=== PATIENT | female | born 1935 | race Caucasian/White ===

== ENCOUNTER 2018-10-19 03:50 | Inpatient (IN) | payer MEDICARE ==
[~2018-10-19] VITALS: Ht 172.7 cm; Wt 59.0 kg
[2018-10-19 03:50] VITALS: BP 142/82
--- NOTE | 2018-10-19 03:55 | NUR ---
BIBA TO ER BED 9
--- NOTE | 2018-10-19 04:00 | NUR ---
BIBA FOR MULTIPLE N/V AND UPPER ABD PAIN X 1 DAY. EMS GAVE ZOFRAN 4MG ODT WITH IMPROVEMENT. ABD IS SOFT NON TENDER. BOWEL SOUNDS ACTIVE X 4 QUADRANTS. NO PAIN UPON PALPATION. PT PLACED INTO BED, PENDING MD DILLARD. PMH: APPENDECTOMY, CHOLECYSTECTOMY, IBS, HYPOTHYROIDISM, HLD Addendum: 10/19/18 at 0629 by MEDRI BIBA FOR MULTIPLE N/V AND UPPER ABD PAIN X 1 DAY. EMS GAVE ZOFRAN 4MG ODT WITH IMPROVEMENT. ABD IS SOFT NON TENDER IN UPPER QUADRANTS, LOWER QUADRANTS TENDER TO PALPATION. NO PAIN UPON PALPATION. BOWEL SOUNDS ACTIVE X 4 QUADRANTS. PT PLACED INTO BED, PENDING MD DILLARD. PMH: APPENDECTOMY, CHOLECYSTECTOMY, IBS, HYPOTHYROIDISM, HLD
[2018-10-19] MEDS ORDERED: ONDANSETRON 4 MG/2 ML VIAL IVP ONE (04:50)
[2018-10-19] MEDS ORDERED: NACL 0.9% 1,000 ML IV ONE (04:50)
--- NOTE | 2018-10-19 05:07 | NUR ---
PT TO CT VIA WC
--- NOTE | 2018-10-19 05:20 | NUR ---
RETURN FROM CT
[2018-10-19 06:05] LABS: BASOPHILS % (AUTO) 0.3 % (0.0-2.0); LYMPHOCYTES # (AUTO) 0.6 K/uL (2.5-16.5); MONOCYTES # (AUTO) 0.3 K/uL (0.8-1.0); RED BLOOD CELL COUNT(AUTO) 4.94 MIL/uL (4.20-5.40)
--- NOTE | 2018-10-19 06:11 | NUR ---
CT CRITICAL TAKEN AND DR CHAVEZ NOTIFIED IMMEDIATELY. CT RESULTS SHOW CONSISTENT WITH SMALL BOWEL OBSTRUCTION. DR CHAVEZ INSTUCTED TO BEGIN ADMITTING PT.
[2018-10-19 06:13] LABS: BILIRUBIN,URINE NEGATIVE (NEGATIVE); BLOOD, URINE TRACE-I (NEGATIVE); COLOR,URINE YELLOW (YELLOW); NITRITE, URINE POSITIVE (NEGATIVE); UGLUCOSE NEGATIVE (NEGATIVE)
[2018-10-19 06:14] LABS: APPEARANCE,URINE HAZY (CLEAR); LEUKOCYTE ESTERASE ,URINE 2+ (NEGATIVE)
[2018-10-19 06:17] LABS: EOSINOPHILS # (AUTO) 0.1 K/uL (0-0.4); EOSINOPHILS % (AUTO) 0.5 % (0.0-4.0); HEMATOCRIT 45.7 % (36-48); HEMOGLOBIN 15.5 g/dL (12.0-16.0); LYMPHOCYTES % (AUTO) 6.2 % (20.5-51.1); MEAN CORPUSCULAR HEMOGLOBIN 31 pg (27-31); MEAN CORPUSCULAR HGB CONC 34 g/dL (33-37); MEAN CORPUSCULAR VOLUME 92.5 fL (80-94); MONOCYTES % (AUTO) 2.5 % (1.7-9.3); NEUTROPHILS # (AUTO) 9.4 K/uL (1.8-7.7); NEUTROPHILS % (AUTO) 90.5 % (42.2-75.2); PLATELET COUNT (AUTO) 186 K/uL (140-450); WHITE BLOOD COUNT (AUTO) 10.4 K/uL (4.8-10.8)
[2018-10-19 06:17] LABS: RBC,URINE 0-5 (RARE) /HPF (0-5)
[2018-10-19 06:18] LABS: WBC,URINE 80-100 /HPF (0-5)
[2018-10-19] MEDS ORDERED: ONDANSETRON 4 MG/2 ML VIAL IM/IVP PRN (06:40)
[2018-10-19] MEDS ORDERED: KETOROLAC 30 MG/ML VIAL IVP PRN (06:40)
[2018-10-19] MEDS ORDERED: HYDROcodone/APAP 7.5/325 MG 1 TAB PO PRN (06:40)
[2018-10-19] MEDS ORDERED: DOCUSATE SODIUM 100 MG GELCAP PO PRN (06:40)
[2018-10-19] MEDS ORDERED: ACETAMINOPHEN 325 MG TAB PO PRN (06:40)
[2018-10-19 07:01] LABS: ANION GAP 6.6 (8-16); CARBON DIOXIDE 36.3 mmol/L (21-32); CHLORIDE 99 mmol/L (98-107); CREATININE 1.1 mg/dL (0.6-1.3); GLUCOSE 134 mg/dL (74-106); POTASSIUM 3.9 mmol/L (3.5-5.1); SODIUM SERUM 138 mmol/L (136-145)
[2018-10-19 07:02] LABS: ALBUMIN 3.7 g/dL (3.4-5.0); ASPARTATE AMINOTRANSFERASE 15 U/L (15-37); TOTAL BILIRUBIN 0.5 mg/dL (0.0-1.0)
[2018-10-19 07:19] LABS: UREA NITROGEN, BLOOD 16 mg/dL (7-18)
--- NOTE | 2018-10-19 07:25 | NUR ---
Patient will be admitted to care of [facility]. Admited to TELE. Will go to room 124-B. Belongings list completed. Report to EDD MORENO.
--- NOTE | 2018-10-19 08:00 | NUR ---
RECEIVED REPORT FORM PM NURSE AT BEDSIDE. PT ADMITTED FROM ER. PT CC NAUSEA AND VOMITING AND ADMITTED WITH DX OF SMALL BOWEL OBSTRUCTION. PT COMPLAINS OF MILD PAIN IN HER STOMACH, STATES IS TOLERABLE AT THIS TIME. PT DAUGHTER AT BEDSIDE. VS RECORDED, NORMAL AT THIS TIME. T 98.5, HR 64, BP 136/32, RR 18, O2 SAT 95%. PT HAS IV ACCESS AT LF AC 20 G, NS INFUSING WELL. NO SIGN OF DISTRESS NOTED. MRSA NARES SWAB OBTAINED, SENT TO LAB. ORDER NG TUBE INSERTION IN PT. INFORMED PT THAT, THERE IS ORDER FOR NG TUBE INSERTION. PT AND DAUGHTER AWARE. OKAY WITH PROCEDURE. EDUCATED PT ON NG TUBE INSERTION, STATES HAD NG TUBE BEFORE. IS FAMILIAR WITH PROCEDURE. PREPARING TO INSERT NG TUBE. WILL CONTINUE TO MONITOR PT.
[2018-10-19 09:59] LABS: CHOL/HDL RATIO 2.4 (1-4.5); MAGNESIUM 2.1 mg/dL (1.8-2.4); PHOSPHORUS 4.9 mg/dL (2.5-4.9); THYROID STIMULATING HORMONE 1.7 uIU/mL (0.34-3.74)
--- NOTE | 2018-10-19 10:00 | NUR ---
INSERTED NG TUBE IN PT WITH HELP OF RN WOO, X-RAY ORDERED FOR CONFIRMATION, NG TUBE NOT IN PLACE. WILL RE-INSERT NG TUBE , NOTIFIED. WILL CONTINUE TO MONITOR PT.
[2018-10-19 10:12] LABS: PROTHROMBIN TIME 9.4 secs (10.8-13.4)
[2018-10-19] MEDS ORDERED: MORPHINE SULFATE 2 MG/ML SYR IVP SCH (10:45)
[2018-10-19 12:00] VITALS: BP 129/41
[2018-10-19] MEDS: DEXT 5% /NACL 0.9% 1,000 ML IV SCH ×2 (12:00→17:47)
--- NOTE | 2018-10-19 12:00 | NUR ---
NG TUBE INSERTED BY DR FLORES, SUCCESSFUL. X-RAY CONFIRMS THE PLACEMENT. PT TOLERATED WELL. NG TUBE CONNECTED TO LOW INTERMITTENT SUCTION. ADMINISTERED OTHER MEDS ORDERED. ADMINISTERED MORPHINE FOR PAIN MANAGEMENT. PT LYING COMFORTABLY IN BED. NO SIGN OF DISTRESS NOTED. WILL CONTINUE TO MONITOR PT.
--- NOTE | 2018-10-19 15:00 | NUR ---
CHECKED ON PT. LYING ON HER BED. PT SLEEPING COMFORTABLY. NO SIGN OF DISTRESS NOTED. CALL LIGHT WITHIN PT REACH. WILL CONTINUE TO MONITOR PT.
[2018-10-19 16:00] VITALS: BP 126/42
--- NOTE | 2018-10-19 17:00 | NUR ---
RECEIVED CALL FROM RAD. WANTED TO ADMINISTERED CONTRAST FOR KUB IN PT. ADMINISTERED KUB IN PT. TOLERATED WELL. NO SIGN OF DISTRESS NOTED. WILL CONTINUE TO MONITOR PT. FLOOR WINDER WANTS NOT TO OPEN THE LOW INTERMITTENT SUCTION IT MIGHT PULL THE CONTRAST FORM THE PT.
--- NOTE | 2018-10-19 19:15 | NUR ---
ENDORSED PT TO PM NURSE AT BEDSIDE. PT LYING ON HER BED COMFORTABLY. PT HAS SMALL AMOUNT OF BLOOD IN NG TUBE. MD AWARE. PER MD , MONITOR THE AMOUNT OF BLOOD IN THE NG TUBE, TO INFORM HER IF BLOOD IN CONTINUOS. NO SIGN OF DISTRESS . PT DENIES ANY PAIN OR DISCOMFORT.
--- NOTE | 2018-10-19 19:16 | NUR ---
RECEIVED PT ON BED, AAOX4, DENIES ANY PAIN, VITAL SIGNS STABLE, NO SOB NOTED, WITH NGT TO LEFT NARES, SUCTION OFF AT THIS TIME DUE TO ON-GOING SMALL BOWEL FOLLOW THROUGH, MAINTAINED ON NPO, IVF INFUSING WELL, PLAN OF CARE DISCUSSED, SAFETY MEASURES IN PLACE, CALL LIGHT WITHIN REACH.
[2018-10-19 20:00] VITALS: BP 117/42
[2018-10-19] MEDS: FAMOTIDINE 20 MG TAB PO SCH (21:00)
--- NOTE | 2018-10-19 21:29 | NUR ---
DUE PO MEDICATION NOT GIVEN DUE TO PT UNDERGOING SBFT AT THIS TIME, PT WITH SMALL AMOUNT OF DIARRHEA X5 SINCE THE START OF THE SHIFT, DR MEDRANO IS AWARE, TO CONTINUE MONITOR AND IVF IS INFUSING WELL.
--- NOTE | 2018-10-19 21:50 | NUR ---
NGT DISCONTINUED PER ORDER BY DR SHEPHERD, TOLERATED WELL, NO BLEEDING NOTED, INSTRUCTED TO START FULL LIQUID DIET TOMORROW, VERBALIZED UNDERSTANDING.
[2018-10-20] VITALS: BP 122/38
--- NOTE | 2018-10-20 | NUR ---
PT SLEEPING, EASILY AROUSABLE, VITAL SIGNS STABLE, DENIES PAIN, NO N/V NOTED, IVF INFUSING WELL, CONTINUE TO MONITOR CLOSELY.
[2018-10-20] MEDS: DEXT 5% /NACL 0.9% 1,000 ML IV SCH ×2 (02:40→16:04)
[2018-10-20 04:00] VITALS: BP 107/45
--- NOTE | 2018-10-20 04:00 | NUR ---
PT SLEEPING, EASILY AROUSABLE, VITAL SIGNS STABLE, DENIES PAIN OR NAUSEA, IVF INFUSING WELL, MONITORED CLOSELY.
[2018-10-20] MEDS: LEVOTHYROXINE 0.1 MG TAB PO SCH (06:11)
--- NOTE | 2018-10-20 06:15 | NUR ---
DUE PO MEDICATION TAKEN, TOLERATED WELL, VOIDED FREELY PER BEDSIDE COMMODE, NO DIARRHEA AT THIS TIME, IVF INFUSING WELL, TO START ON FULL LIQUID FOR BREAKFAST TODAY, PT AWARE, MONITORED CLOSELY.
[2018-10-20 06:25] LABS: T4 (THYROXINE) 11.9 ug/dL (4.5-12.0)
--- NOTE | 2018-10-20 07:15 | NUR ---
PT AWAKE, NO DISTRESS NOTED, REPORT GIVEN TO EDD BERKOWITZ FOR CONTINUITY OF CARE.
[2018-10-20 07:21] LABS: BASOPHILS % (AUTO) 0.5 % (0.0-2.0); EOSINOPHILS # (AUTO) 0.1 K/uL (0-0.4); EOSINOPHILS % (AUTO) 1.8 % (0.0-4.0); HEMATOCRIT 37.6 % (36-48); HEMOGLOBIN 12.6 g/dL (12.0-16.0); LYMPHOCYTES # (AUTO) 1.1 K/uL (2.5-16.5); MEAN CORPUSCULAR HEMOGLOBIN 31 pg (27-31); MEAN CORPUSCULAR HGB CONC 34 g/dL (33-37); MEAN CORPUSCULAR VOLUME 92.7 fL (80-94); MONOCYTES # (AUTO) 0.4 K/uL (0.8-1.0); MONOCYTES % (AUTO) 6.8 % (1.7-9.3); NEUTROPHILS # (AUTO) 4.3 K/uL (1.8-7.7); NEUTROPHILS % (AUTO) 72.9 % (42.2-75.2); PLATELET COUNT (AUTO) 146 K/uL (140-450); RED BLOOD CELL COUNT(AUTO) 4.06 MIL/uL (4.20-5.40); RED CELL DISTRIBUTION WIDTH 12.9 % (11.6-13.7); WHITE BLOOD COUNT (AUTO) 5.9 K/uL (4.8-10.8)
[2018-10-20 07:31] LABS: ANION GAP 10.1 (8-16); CARBON DIOXIDE 28.6 mmol/L (21-32); CHLORIDE 105 mmol/L (98-107); CREATININE 0.9 mg/dL (0.6-1.3); GLUCOSE 103 mg/dL (74-106); POTASSIUM 3.7 mmol/L (3.5-5.1); SODIUM SERUM 140 mmol/L (136-145); UREA NITROGEN, BLOOD 8 mg/dL (7-18)
[2018-10-20 07:37] LABS: MAGNESIUM 1.8 mg/dL (1.8-2.4); PHOSPHORUS 4.1 mg/dL (2.5-4.9)
[2018-10-20 08:00] VITALS: BP 138/41
--- NOTE | 2018-10-20 08:08 | NUR ---
REPORT RECEIVED FROM NURSE BERKOWITZ WHO RECEIVED REPORT FROM JANIE GOEMZ AWAKE ALERT, RESP EVEN UNLABORED, SKIN WARM DRY COLOR JANIE BAÑUELOS DENIES PAIN OR DISCOMFORT, DENIES N/V, PLAN OF CARE REVIEWED, NO IMMEDIATE NEEDS AT THIS TIME, ALL SAFETY MEASURES IN PLACE, WILL CONTINUE TO MONITOR. Addendum: 10/20/18 at 0810 by Carmen Azar RN SBD SOFT, NON DISTEND. Addendum: 10/20/18 at 0810 by Carmen Azar RN ABDOMEN SOFT, NON DISTENDED.
[2018-10-20] MEDS ORDERED: DOCU-299 PO (08:12)
[2018-10-20] MEDS ORDERED: CALC625T27 PO (08:12)
[2018-10-20] MEDS: ATORVASTATIN 20 MG TAB PO SCH (08:53)
--- NOTE | 2018-10-20 09:00 | NUR ---
PT NALLELY FULL LIQ DIET WELL WITHOUT N/V, DENIES PAIN OR DISCOMFORT, AM MEDS GIVEN, PT NALLELY WELL, ROCEPHIN IV STARTED, IV SITE WNL, PT DENIES ANY IMMEDIATE NEEDS, WILL CONTINUE TO MONITOR.
[2018-10-20 12:00] VITALS: BP 139/45
--- NOTE | 2018-10-20 12:08 | NUR ---
PT SITTING UP IN BED READY TO EAT FULL LIQ LUNCH, PT DENIES PAIN OR DISCOMFORT, DENIES SOB, DENIES ANY IMMEDIATE NEEDS, WILL CONTINUE TO MONITOR.
--- NOTE | 2018-10-20 13:59 | NUR ---
10/20/18 RD INITIAL ASSESSMENT COMPLETED PLEASE REFER TO NUTRITION ASSESSMENT UNDER CARE ACTIVITY FOR ESTIMATED NUTRITIONAL NEEDS. 1. CONTINUE FULL LIQUID DIET TOLERATED 2. ADVANCE TO REGULAR DIET WHEN MEDICALLY STABLE 3. PROVIDE NUTRITION EDUCATION ON CARDIAC DIET 4. RD TO FOLLOW-UP 3-5 DAYS, MODERATE RISK JOSE L[address]PEZ RD
--- NOTE | 2018-10-20 15:02 | NUR ---
PT UP OUT OF BED TO BEDSIDE COMMODE, STABLE GAIT, NALLELY LUNCH WELL, WILL CONTINUE TO MONITOR
[2018-10-20 16:00] VITALS: BP 130/70
--- NOTE | 2018-10-20 16:20 | NUR ---
PT UP OUT OF BED WITH MINIMAL ASSIST, AMBULATES AROUND THE HALLWAY WITH SLOW STEADY GAIT WITH STAFF, NALLELY WELL, PT STATES HER BACK FEELS BETTER WHEN WALKING
--- NOTE | 2018-10-20 19:20 | NUR ---
REPORT GIVEN TO CONTACT CLERK NURSE. PT IN STABLE CONDITION.
--- NOTE | 2018-10-20 19:22 | NUR ---
RECEIVED AWAKE ON BED, AAOX4, VITAL SIGNS STABLE, DENIES PAIN, TOLERATING FULL LIQUID DIET, IVF INFUSING WELL, PLAN OF CARE DISCUSSED, SAFETY MEASURES IN PLACE, CALL LIGHT WITHIN REACH.
[2018-10-20 20:00] VITALS: BP 141/46
[2018-10-20] MEDS: FAMOTIDINE 20 MG TAB PO SCH (20:12)
--- NOTE | 2018-10-20 21:50 | NUR ---
PT ABLE TO TRANSFER TO BEDSIDE COMMODE BY HERSELF, VOIDED FREELY, NO DIARRHEA AT THIS TIME, MONITORED CLOSELY.
--- NOTE | 2018-10-20 23:40 | NUR ---
PT SLEEPING, EASILY AROUSABLE, VITAL SIGNS STABLE, DENIES PAIN OR NAUSEA, IVF INFUSING WELL, CONTINUE TO MONITOR CLOSELY.
[2018-10-21] VITALS: BP 140/53
[2018-10-21] MEDS: DEXT 5% /NACL 0.9% 1,000 ML IV SCH (03:03)
--- NOTE | 2018-10-21 03:50 | NUR ---
PT SLEEPING, VITAL SIGNS STABLE, DENIES PAIN, IVF INFUSING WELL.
[2018-10-21 04:00] VITALS: BP 143/40
--- NOTE | 2018-10-21 05:10 | NUR ---
BM WITH SOFT STOOL SMALL AMOUNT, NO N/V, MONITORED CLOSELY.
[2018-10-21] MEDS: LEVOTHYROXINE 0.1 MG TAB PO SCH (05:55)
[2018-10-21 06:58] LABS: BASOPHILS % (AUTO) 0.4 % (0.0-2.0); EOSINOPHILS # (AUTO) 0.1 K/uL (0-0.4); EOSINOPHILS % (AUTO) 2.9 % (0.0-4.0); HEMATOCRIT 41.3 % (36-48); HEMOGLOBIN 13.7 g/dL (12.0-16.0); LYMPHOCYTES # (AUTO) 0.7 K/uL (2.5-16.5); LYMPHOCYTES % (AUTO) 16.1 % (20.5-51.1); MEAN CORPUSCULAR HEMOGLOBIN 31 pg (27-31); MEAN CORPUSCULAR HGB CONC 33 g/dL (33-37); MEAN CORPUSCULAR VOLUME 93.3 fL (80-94); MONOCYTES # (AUTO) 0.3 K/uL (0.8-1.0); NEUTROPHILS # (AUTO) 3.3 K/uL (1.8-7.7); NEUTROPHILS % (AUTO) 74.6 % (42.2-75.2); PLATELET COUNT (AUTO) 149 K/uL (140-450); RED BLOOD CELL COUNT(AUTO) 4.43 MIL/uL (4.20-5.40); WHITE BLOOD COUNT (AUTO) 4.4 K/uL (4.8-10.8)
--- NOTE | 2018-10-21 07:24 | NUR ---
PT AWAKE, NO SIGNS OF DISTRESS, REPORT GIVEN TO MYLENE PUGA FOR CONTINUITY OF CARE.
--- NOTE | 2018-10-21 07:25 | NUR ---
RECEIVED REPORT FROM GRINDER OUTSIDE DIAMETER NURSE FOR CONTINUITY OF CARE. PT IN STABLE CONDITION. RESPIRATIONS EVEN AND UNLABORED. IV INTACT, PATENT. SAFETY MEASURES IN PLACE. CALL LIGHT AT BEDSIDE. WILL CONTINUE TO MONITOR.
[2018-10-21 08:00] VITALS: BP 161/47
[2018-10-21 08:18] LABS: CREATININE 0.8 mg/dL (0.6-1.3)
[2018-10-21] MEDS ORDERED: DOCUSATE 100 MG/10 ML UDC PO SCH (09:00)
[2018-10-21] MEDS ORDERED: CALCIUM POLYCARBOPHIL 625 MG TAB PO SCH (09:00)
--- NOTE | 2018-10-21 09:00 | NUR ---
GAVE ORDERED DUE MEDICATIONS, PT TOLERATED WELL. WILL CONTINUE TO MONITOR.
--- NOTE | 2018-10-21 09:30 | NUR ---
GAVE PT ICE FOR TO SUCK ON, PT C/O SLIGHT HEAT IN HER MOUTH FROM [place]. AFTER 5 MINUTES PAIN WENT AWAY AND PT STATED SHE WAS OKAY.
[2018-10-21] MEDS: ATORVASTATIN 20 MG TAB PO SCH (09:35)
[2018-10-21] MEDS ORDERED: CEPH250C16 PO (09:46)
--- NOTE | 2018-10-21 11:00 | NUR ---
ASSIST PT WITH CLEANING AFTER USING BEDSIDE COMMODE. WILL CONTINUE TO MONITOR.
[2018-10-21] MEDS ORDERED: DIPHENOXYLATE /ATROPINE 2.5 MG TAB PO SCH (12:00)
[2018-10-21] MEDS ORDERED: POTASSIUM CHLORIDE 20% 40 MEQ/15 ML UDC PO SCH (12:15)
[2018-10-21 13:25] LABS: SODIUM SERUM 147 mmol/L (136-145)
[2018-10-21 13:26] LABS: ANION GAP 17.3 (8-16); CARBON DIOXIDE 25.2 mmol/L (21-32); CHLORIDE 108 mmol/L (98-107); POTASSIUM 3.5 mmol/L (3.5-5.1)
[2018-10-21 13:27] LABS: GLUCOSE 113 mg/dL (74-106); UREA NITROGEN, BLOOD 4 mg/dL (7-18)
--- NOTE | 2018-10-21 16:15 | NUR ---
GAVE PT DISCHARGE INSTRUCTIONS AND RX PRESCRIPTIONS. ALL ANSWERED ALL QUESTIONS AT BEDSIDE. REMOVED IV ON RIGHT AC/ LEFT FOREARM, LUMEN INTACT. REMOVED ID BANDS. WHEELED PT TO LOBBY WHERE DAUGHTER WAS WAITING IN CAR. PT IN STABLE CONDITION.
== END 2018-10-21 12:35 | disposition home or self-care (01) | DRG 389 ==
LOC: MED 03:50 → MMU 06:44 → MTU 07:20
PROVIDERS: ADMIT General Practice; ATTEND General Practice
PROC: 0D9670Z Drainage of Stomach with Drainage Device, Via Natural or Artificial Opening (ICD-10-PCS; principal; 2018-10-20)
DX: K56.600 Partial intestinal obstruction, unspecified as to cause (principal); N39.0 Urinary tract infection, site not specified; E83.52 Hypercalcemia; K21.9 Gastro-esophageal reflux disease without esophagitis; E03.9 Hypothyroidism, unspecified; E78.5 Hyperlipidemia, unspecified; M81.0 Age-related osteoporosis without current pathological fracture; Z95.0 Presence of cardiac pacemaker; Z85.44 Personal history of malignant neoplasm of other female genital organs; Z92.3 Personal history of irradiation; Z90.49 Acquired absence of other specified parts of digestive tract; Z90.710 Acquired absence of both cervix and uterus; Z98.49 Cataract extraction status, unspecified eye; Z88.1 Allergy status to other antibiotic agents; Z88.2 Allergy status to sulfonamides
CPT/HCPCS: 36415; 71045; 74018; 74250; 80048; 80053; 81001; 82140; 82150; 83036; 83605; 83690; 83735; 83880; 84100; 84436; 84443; 84479; 85025; 85610; 85730; 87081; 87086; 87186; 93005; 96361; 96374; 99285; J0696; J2270; J2405; J7042; J7060; Q0092; Q9967